=== PATIENT | female | born 1980 ===

== ENCOUNTER 2018-06-09 07:45 | Outpatient (CLI) | payer OTHER | END 2018-06-09 07:47 | disposition home or self-care (01) | LOC: SONOGRAMA 07:45 | DX: N63.10 Unspecified lump in the right breast, unspecified quadrant (principal) ==

== ENCOUNTER 2020-11-28 11:50 | Day surgery (SDC) | payer OTHER ==
[~2020-11-28 11:50] MED LIST: KEPPRA500 MG PO; ZYRTEC PO
== END 2020-11-28 21:00 | disposition home or self-care (01) ==
LOC: CIR.AMB 11:50
PROVIDERS: ATTEND Obstetrics & Gynecology Obstetrics
DX: N84.0 Polyp of corpus uteri (principal); Z20.822 Contact with and (suspected) exposure to COVID-19